=== PATIENT | female | born 1980 ===

== ENCOUNTER 2022-01-29 00:03 | Inpatient (IN) | payer MEDICAID ==
[2022-01-29] MEDS ORDERED: Sodium Chloride 0.9% 2.5 ML Syringe FLUSH PRN (00:07)
[2022-01-29] MEDS ORDERED: Misoprostol 200 MCG Tab PO PRN (00:07)
[2022-01-29] MEDS ORDERED: Tranexamic Acid 1,000 MG in Sodium Chloride 0.9% 100 ML IV PRN (00:07)
[2022-01-29] MEDS ORDERED: Sodium Chloride 0.9% 20 ML SDV IV PRN (00:07)
[2022-01-29] MEDS ORDERED: Carboprost Tromethamine 250 MCG/1 ML Amp IM PRN (00:07)
[2022-01-29] MEDS ORDERED: Lidocaine 1% 50 ML MDV INJECT PRN (00:07)
[2022-01-29] MEDS ORDERED: Sodium Chloride 0.9% 10 ML Syringe FLUSH PRN (00:07)
[2022-01-29] MEDS ORDERED: Ondansetron 4 MG/2 ML SDV IVPUSH PRN (00:07)
[2022-01-29] MEDS ORDERED: Butorphanol 1 MG/ML SDV IVPUSH PRN (00:07)
[2022-01-29] MEDS ORDERED: Water For Irrigation,Sterile 1,000 ML Container IRR PRN (00:07)
[2022-01-29] MEDS ORDERED: Methylergonovine 0.2 MG/1 ML Amp IM PRN (00:07)
[2022-01-29] MEDS ORDERED: Terbutaline 1 MG/ML SDV SUBCUT PRN (00:12)
[2022-01-29] MEDS ORDERED: Oxytocin/0.9 % Sodium Chloride 30 UNIT/500 ML BAG IV SCH ×2 (00:15)
[2022-01-29] MEDS ORDERED: Misoprostol 25 MCG (1/4 of 100 MCG) Tab PO ONE (01:30)
[2022-01-29] MEDS ORDERED: Misoprostol 25 MCG (1/4 of 100 MCG) Tab VAG PRN ×2 (01:30→05:30)
[2022-01-29] MEDS: Lactated Ringers 1,000 ML IV SCH ×2 (06:23→10:30)
[2022-01-29] MEDS ORDERED: ePHEDrine 50 MG/ML SDV IVPUSH PRN (09:38)
[2022-01-29] MEDS ORDERED: Ropivacaine HCl/PF 400 MG in Premix Bag 1 BAG EPIDUR SCH (09:45)
[2022-01-29] MEDS ORDERED: Bupivacaine 0.5% 10 ML SDV ONE (11:18)
[2022-01-29] MEDS ORDERED: Acetaminophen 500 MG Tab PO PRN ×2 (12:58)
[2022-01-29] MEDS ORDERED: Witch Hazel Medicated Pads 40/Jar TOP PRN (12:58)
[2022-01-29] MEDS ORDERED: Benzocaine/Menthol 20%-0.5% Spray 78 GM Cannister TOP PRN (12:58)
[2022-01-29] MEDS ORDERED: Bisacodyl 10 MG Supp RECTAL PRN (12:58)
[2022-01-29] MEDS ORDERED: Docusate Sodium 100 MG Cap PO PRN (12:58)
[2022-01-29] MEDS ORDERED: Ibuprofen 400 MG Tab PO PRN (12:58)
[2022-01-29] MEDS ORDERED: Lanolin 100% Cream 7 GM Tube TOP PRN (12:58)
[2022-01-29] MEDS: Ibuprofen 800 MG Tab PO PRN (19:19)
[2022-01-29] MEDS: Nicotine 7 MG/24 Hr Patch TRDERM SCH (22:02)
[2022-01-30] MEDS: Ibuprofen 800 MG Tab PO PRN ×2 (09:54→16:27)
[2022-01-30] MEDS: Nicotine 7 MG/24 Hr Patch TRDERM SCH ×2 (11:56→16:28)
[2022-01-31] MEDS: Nicotine 7 MG/24 Hr Patch TRDERM SCH (09:21)
== END 2022-01-31 13:30 | disposition home or self-care (01) | DRG 807 ==
LOC: MW.OBCHECK 00:03 → MW.OB 00:07 → OBSVTOIN 11:43 → MW.OB 11:43
PROVIDERS: ADMIT Obstetrics & Gynecology Obstetrics; ATTEND Obstetrics & Gynecology Obstetrics
PROC: 10E0XZZ Delivery of Products of Conception, External Approach (ICD-10-PCS; principal; 2022-01-29)
PROC: 3E0R3BZ Introduction of Anesthetic Agent into Spinal Canal, Percutaneous Approach (ICD-10-PCS; 2022-01-29)
PROC: 00HU33Z Insertion of Infusion Device into Spinal Canal, Percutaneous Approach (ICD-10-PCS; 2022-01-29)
DX: O99.02 Anemia complicating childbirth (principal); Z37.0 Single live birth; O24.410 Gestational diabetes mellitus in pregnancy, diet controlled; O99.334 Smoking (tobacco) complicating childbirth; F17.200 Nicotine dependence, unspecified, uncomplicated; D64.9 Anemia, unspecified; Z20.822 Contact with and (suspected) exposure to COVID-19; Z88.1 Allergy status to other antibiotic agents; Z88.0 Allergy status to penicillin; Z88.5 Allergy status to narcotic agent; Z88.8 Allergy status to other drugs, medicaments and biological substances; Z3A.39 39 weeks gestation of pregnancy
CPT/HCPCS: 36415; 51702; 59025; 59409; 85014; 85018; 85027; 86592; 86850; 86900; 86901; A9270-GY; J2590; J2795; J3490; J7120; U0002